=== PATIENT | male | born 1955 | race Caucasian/White ===

== ENCOUNTER 2019-08-25 06:17 | Inpatient (IN) ==
--- NOTE | 2019-07-23 14:58 | PAT Medication Instructions ---
Medication Instructions Date of Service July 23, 2019 Home Medications amlodipine 5 mg PO HS aspirin 81 mg PO HS buspirone 10 mg PO QAM citalopram [Celexa] 10 mg PO HS losartan 50 mg PO HS meloxicam [Mobic] 15 mg PO QAM pravastatin 10 mg PO QAM ASK your surgeon for instructions meloxicam [Mobic] 15 mg PO QAM Take morning of surgery With a small sip of water, OTHERWISE NOTHING TO EAT OR DRINK AFTER MIDNIGHT: buspirone 10 mg PO QAM pravastatin 10 mg PO QAM Take evening before surgery amlodipine 5 mg PO HS aspirin 81 mg PO HS citalopram [Celexa] 10 mg PO HS losartan 50 mg PO HS Insulin Dependent Diabetic Patients * Test your blood sugar the morning of surgery * If Blood Sugar is GREATER THAN 150, take HALF of your regular dose of: * If Blood Sugar is LESS THAN 150, DO NOT TAKE ANY: Other Notes If you have any questions please call us at [phone] or [phone] or [phone] or [phone]
--- NOTE | 2019-07-26 12:25 | Anesthesiology Consultation ---
Date of Service July 26, 2019 Assessment & Plan (1) Encounter for pre-operative examination: PCP clearance 07/28/2019: "A1c elevated at 6.8. He does not want to start on any meds at this time. He wants to try diet and exercise first... Continue current meds. Patient cleared for surgery." Cardiology clearance 07/30/2019: "In regards to his upcoming orthopedic surgery I want him to get the MRI beforehand since it is a knee replacement; as long as stress test is normal and EF is normal and the MRI does not show any significant scarring of the RV then he is at an acceptable moderate cardiovascular risk for his orthopedic surgery." --Stress test negative for ischemia. EF WNL. Cardiac MRI showed no signs of ARVC. CHECK BSG AM DOS Chart Review Chart Review: Acceptable Risk for Surgery and Patient seen in Pre Admission Testing Teaching & Discussion Instructed NPO after midnight before surgery, except medications with 15 cc of water. Medication instructions provided according to the PAT guidelines. History Surgery Operation Date: 08/25/19 08:20 Proposed Procedures p Left Total Knee Arthroplasty; - Cruz Dai DO s Right Knee Arthroscopy With Partial Medial Menisectomy - Cruz Dai DO Height/Weight Height: 6 ft 2 in Weight: 111.6 kg Allergies Allergy/AdvReac Type Severity Reaction Status Date / Time [id number]-[id number] Reductase Allergy Intermediate LEG CRAMPS Verified 07/22/19 09:49 Inhibitor Medications Home Medications Medication Instructions Recorded Confirmed Last Taken amlodipine 5 mg PO HS 07/22/19 07/22/19 Unknown aspirin 81 mg PO HS 07/22/19 07/22/19 Unknown buspirone 10 mg PO QAM 07/22/19 07/22/19 Unknown citalopram [Celexa] 10 mg PO HS 07/22/19 07/22/19 Unknown losartan 50 mg PO HS 07/22/19 07/22/19 Unknown meloxicam [Mobic] 15 mg PO QAM 07/22/19 07/22/19 Unknown pravastatin 10 mg PO QAM 07/22/19 07/22/19 Unknown Past Medical History Medical History Anxiety Barretts esophagus Hyperlipidemia Hypertension Kidney stones Osteoarthritis Research study patient Patient did [facility] "My [facility]" and was notified he is at risk for Arrhythmogenic Right Ventricular Cardiomyopathy. Patient has not been formally diagnosed with anything, normal stress echo 2014. Sleep apnea CPAP Spinal stenosis Exercise / Class Metabolic Activity II 4-5 Yardwork/Stairs/Walk up hill (Denies CP or SOB with 1 FOS, "could probably run up them") Past Family History Family History Grandmother (Paternal) Family history of diabetes mellitus Brother Family hx colonic polyps Sister Family hx colonic polyps Past Surgical History Surgical History History of colonoscopy History of cystoscopy STENT FOR KIDNEY STONES History of esophagogastroduodenoscopy (EGD) History of knee surgery LEFT KNEE X 2 History of lithotripsy History of nasal septoplasty History of shoulder surgery LEFT History of tooth extraction Past Anesthesia History No Hx of Anesthesia Complications and No Family Hx of Anesthesia Complications History of PONV No Hx of PONV and No Hx of Motion Sickness Social History Smoking Status: Never smoker tobacco type: smokeless tobacco Do You Dip or Chew Tobacco: Yes (1 CAN PER DAY (ADVISED NONE AM DOS)) Hx Alcohol Use: Yes Alcohol type: beer alcohol intake frequency: a few times a month Hx Substance Use: No substance use type: does not use Review of Systems Pt denies any recent chest pain, shortness of breath, palpitations, cough, fever or URI. Physical Exam Vital Signs BP: 157/88 (pt takes BP at home daily, states usually 120's systolic) P: 56bpm SPO2: 95% RA T: 97.8 F R: 16 ENMT Mouth: + dentures (partial upper) and + dental restorations (several caps); no chipped teeth and no loose teeth Thyromental Distance: > or= 3.5 Finger Breadths (3.5) Mallampati Class: I Neck normal visual inspection; thyromental distance not shortened Respiratory normal respiratory effort Auscultation: lungs clear to auscultation bilaterally Cardiovascular Rate/Rhythm: regular rate and regular rhythm Heart Sounds: no murmur Vessels: no carotid bruit Extremities: no edema Neurologic Slight head tremor periodically (tic?) Testing Laboratory Results 07/26/19 12:36 07/26/19 12:36 PT 10.9 Seconds (9.0-12.0) 07/26/19 12:36 INR 1.1 (0.9-1.1) 07/26/19 12:36 APTT 23.6 Seconds (21.0-31.0) 07/26/19 12:36 Hemoglobin A1c 6.8 % (4.5-5.6) H 07/26/19 12:36 Urine Color Yellow 07/26/19 12:36 Urine Appearance Clear (Clear) 07/26/19 12:36 Urine pH 5.0 (4.5-7.5) 07/26/19 12:36 Ur Specific [place] 1.024 (1.000-1.030) 07/26/19 12:36 Urine Protein Negative (Negative) 07/26/19 12:36 Urine Glucose (UA) Negative (Negative) 07/26/19 12:36 Urine Ketones Negative (Negative) 07/26/19 12:36 Urine Nitrite Negative (Negative) 07/26/19 12:36 Ur Leukocyte Esterase Negative (Negative) 07/26/19 12:36 Blood Type B Positive 07/26/19 12:36 Antibody Screen NEGATIVE 07/26/19 12:36 Electrocardiogram Date: 07/26/19 Findings: + SB @ (53bpm) Stress Test Date: 08/06/19 Resting EF: 55-59% The stress echo was negative for inducible ischemia. Blood pressure response to exercise was hypertensive. LV wall motion is normal at rest and with stress. Patient had periods of frequent multiformed ventricular ectopics as isolated complexes, including brief periods ventricular ectopic bigeminy and ventricular ectopic trigeminy, no nonsustained or sustained ventricular tachycardia seen. Mild tricuspid regurgitation is present.
[2019-07-26 12:59] LABS: Basophils # (auto) 0.02 K/uL (0-0.2); Basophils % (auto) 0.3 %; Eosinophils # (auto) 0.12 K/uL (0-0.5); Eosinophils % (auto) 1.9 %; Hemoglobin 14.3 g/dL (14.0-18.0); Lymphocytes # (auto) 2.42 K/uL (1.2-3.4); Lymphocytes % (auto) 38.4 %; Mean Corpuscular Hgb Conc 33.3 g/dL (32-36); Mean Corpuscular Volume 87.2 fL (80-100); Mean Platelet Volume 11.7 fL (7.4-10.4); Monocytes # (auto) 0.55 K/uL (0.11-0.59); Monocytes % (auto) 8.7 %; Neutrophils % (auto) 50.7 %; Platelet Count 185 K/uL (130-400); RDW Coefficient of Variation 13.5 % (11.5-14.5); RDW Standard Deviation 42.8 fL (36.4-46.3); Red Blood Count 4.93 M/uL (4.7-6.1); White Blood Count 6.31 K/uL (4.8-10.8)
[2019-07-26 13:02] LABS: Estimated Average Glucose 148 mg/dl; Hemoglobin A1C 6.8 % (4.5-5.6)
[2019-07-26 13:06] LABS: Appearance Urine Clear (Clear); Bilirubin Urine Negative (Negative); Blood Urine Negative (Negative); Color Urine Yellow; Glucose Urine UA Negative (Negative); Ketones Urine Negative (Negative); Leukocyte Esterase Urine Negative (Negative); Nitrite Urine Negative (Negative); Protein Urine Negative (Negative); Specific Gravity Urine 1.024 (1.000-1.030); Urobilinogen Urine Negative (Negative)
[2019-07-26 13:19] LABS: INR 1.1 (0.9-1.1); Partial Thromboplastin Ratio 0.9; Partial Thromboplastin Time 23.6 Seconds (21.0-31.0); Prothrombin Time 10.9 Seconds (9.0-12.0)
--- NOTE | 2019-07-26 13:23 | XRay Report ---
XR chest Pre-admission PA/Lat CLINICAL HISTORY: Preoperative evaluation. COMPARISON STUDY: No previous studies for comparison. FINDINGS: Lung volumes are normal. Lungs are clear. There is no pneumothorax or pleural effusion. Car diac size is normal. Mediastinal contours are normal. There is no evidence for pulmonary edema. Incid ental note is made of an old, healed mid shaft fracture of the right clavicle. IMPRESSION: No acute cardiopulmonary findings. Electronically signed by: Jarett Rosenberg M.D. 07/26/2019 1:22 PM
[2019-07-26 14:56] LABS: Albumin Level 3.5 gm/dl (3.4-5.0); BUN Creatinine Ratio 26.7 (10-20); Est GFR (African American) 86.8; Est GFR (Non-African American) 74.8
--- NOTE | 2019-07-28 20:05 | History & Physical Report ---
Date of Service July 28, 2019 date of surgery: 08/25/19 Assessment & Plan (1) Osteoarthritis of left knee: Further care discussed with patient and at this point in time has failed conservative measures and would like to proceed with a left total knee replacement, will also perform right knee scope with PMM. Plan on discharge will be home with outpatient physical therapy. DVT prophylaxis with TEDs, SCDs and will also place on aspirin 81 mg p.o. b.i.d. for a month postop. Patient will have follow up appointment in our office two weeks post op for suture removal and re-evaluation. Patient otherwise has no other questions or concerns. (2) Tear of medial meniscus of right knee: risks and benefits discussed, would like to proceed with right knee scope and partial medial menisectomy. History of Present Illness Chief Complaint: bilateral knee pain Primary Care Provider: Esha Solorzano PA-C Shiva is a 64 year old male who complains of bilateral knee pain, presents for pre-op evaluation prior to a left total knee replacement and right knee scope with partial medial menisectomy by dr Dai at [facility]. He complains of pain, crepitus, decreased range of motion, instability and stiffness in the left knee with pain and catching in his right knee. He states that the symptoms have been chronic and non-traumatic. Shiva states that the symptoms occur constantly with intermittent worsening. Currently the patient states that the symptoms are moderate-severe. The pain is described as aching, sharp and throbbing. The symptoms occur continuously. The symptoms are aggravated by ascending stairs, daily activities, first steps while awake walking. Prior NSAIDs include Mobic and IBU. He has been treated with previous cortisone and visco injections in the past without much relief in his left knee. His x-rays show advanced DJD of his left knee, and MRI confirms medial meniscus tear of his right knee. Allergies Allergy/AdvReac Type Severity Reaction Status Date / Time [id number]-[id number] Reductase Allergy Intermediate LEG CRAMPS Verified 07/22/19 09:49 Inhibitor Home Medications Home Medications Medication Instructions Recorded Confirmed Type amlodipine 5 mg PO HS 07/22/19 07/22/19 History aspirin 81 mg PO HS 07/22/19 07/22/19 History buspirone 10 mg PO QAM 07/22/19 07/22/19 History citalopram [Celexa] 10 mg PO HS 07/22/19 07/22/19 History losartan 50 mg PO HS 07/22/19 07/22/19 History meloxicam [Mobic] 15 mg PO QAM 07/22/19 07/22/19 History pravastatin 10 mg PO QAM 07/22/19 07/22/19 History Past Med/Surg History Medical History Anxiety Barretts esophagus Hyperlipidemia Hypertension Kidney stones Osteoarthritis Research study patient Patient did [facility] "[facility]" and was notified he is at risk for Arrhythmogenic Right Ventricular Cardiomyopathy. Patient has not been formally diagnosed with anything, normal stress echo 2014. 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 Beliefs That Will Affect Care: None Current Living Situation: Spouse Feels Safe at Home: Yes Safety Concerns: Feels Safe At This Time Smoking Status: Never smoker Tobacco Type: smokeless tobacco ; Do You Dip or Chew Tobacco: Yes (1 CAN PER DAY (ADVISED NONE AM DOS)) ; Second Hand Exposure: Yes ; Tobacco Cessation Education Requested by Patient: No Hx Alcohol Use: Yes Alcohol type: beer Hx Substance Use: No Review of Systems Review of Systems: All systems reviewed & are unremarkable except as noted in HPI & below Constitutional: no fever, no chills and no sweats Respiratory: no cough and no dyspnea Cardiovascular: no chest pain, no dyspnea and no orthopnea Gastrointestinal: no abdominal pain, no nausea and no vomiting Musculoskeletal: as per Subjective / HPI Physical Exam Physical Exam: Ht: 6ft 2in Wt: 111.6kg BP: 122/78 Pulse: 78 Constitutional: WD/WN, vitals as above no acute distress Respiratory: normal respiratory effort, lungs clear to auscultation no respiratory distress, no labored breathing and does not use accessory muscles Cardiovascular: RRR, no murmur, no edema Gastrointestinal (Abdomen): normal bowel sounds, soft, nontender, no hepatosplenomegaly Musculoskeletal: Left Knee Physical Exam ambulates with a limp, there is no erythema, warmth, ecchymosis or atrophy noted, +1 effusion, greatest tenderness over the medial joint line and anterior knee joint. negative patellar apprehension , mild crepitation with motion, jasbir's negative, posterior drawer negative. positive mcmurrays medially, negative anterior drawer, knee stable with valgus/varus stress. no extensor lag. pain with active range of motion, AROM 0/3/110, Passive ROM 0/3/115. No pain with active/passive ROM of ankle. Lower Extremity Strength normal. Lower Extremity Neuro-vascular is normal Right Knee Exam neutral alignment, no erythema or warmth, no atrophy or ecchymosis, mild effusion, tenderness to the knee greatest over medial compartment, negative patellar apprehension , no crepitation with motion, jasbir's negative, Dione's - lateral negative, Dione's - medial positive, Posterior drawer- negative, anterior drawer negative, valgus stress negative, varus stress negative, no extensor lag, pain with active range of motion, no pain with passive painful ROM, Range of motion 0/3/120. No pain with active/passive ROM of ankle. Lower extremity strength normal. Lower extremity neuro-vascular is normal Results & Data Laboratory Results Laboratory Results WBC 6.31 K/uL (4.8-10.8) 07/26/19 12:36 RBC 4.93 M/uL (4.7-6.1) 07/26/19 12:36 Hgb 14.3 g/dL (14.0-18.0) 07/26/19 12:36 Hct 43.0 % (42-52) 07/26/19 12:36 MCV 87.2 fL (80-100) 07/26/19 12:36 MCH 29.0 pg (25-34) 07/26/19 12:36 MCHC 33.3 g/dL (32-36) 07/26/19 12:36 RDW Std Deviation 42.8 fL (36.4-46.3) 07/26/19 12:36 RDW Coeff of [place] 13.5 % (11.5-14.5) 07/26/19 12:36 Plt Count 185 K/uL (130-400) 07/26/19 12:36 MPV 11.7 fL (7.4-10.4) H 07/26/19 12:36 Immature Gran % (Auto) 0.0 % 07/26/19 12:36 Neut % (Auto) 50.7 % 07/26/19 12:36 Lymph % (Auto) 38.4 % 07/26/19 12:36 [place] % (Auto) 8.7 % 07/26/19 12:36 Eos % (Auto) 1.9 % 07/26/19 12:36 Baso % (Auto) 0.3 % 07/26/19 12:36 Immature Gran # (Auto) 0.00 K/uL (0.00-0.02) 07/26/19 12:36 Neut # (Auto) 3.20 K/uL (1.4-6.5) 07/26/19 12:36 Lymph # (Auto) 2.42 K/uL (1.2-3.4) 07/26/19 12:36 [place] # (Auto) 0.55 K/uL (0.11-0.59) 07/26/19 12:36 Eos # (Auto) 0.12 K/uL (0-0.5) 07/26/19 12:36 Baso # (Auto) 0.02 K/uL (0-0.2) 07/26/19 12:36 PT 10.9 Seconds (9.0-12.0) 07/26/19 12:36 INR 1.1 (0.9-1.1) 07/26/19 12:36 APTT 23.6 Seconds (21.0-31.0) 07/26/19 12:36 PTT Ratio 0.9 07/26/19 12:36 Sodium 140 mmol/L (136-145) 07/26/19 12:36 Potassium 4.0 mmol/L (3.5-5.1) 07/26/19 12:36 Chloride 108 mmol/L (98-107) H 07/26/19 12:36 Carbon Dioxide 26 mmol/L (21-32) 07/26/19 12:36 Anion Gap 6.0 (3-11) 07/26/19 12:36 BUN 28 mg/dl (7-18) H 07/26/19 12:36 Creatinine 1.06 mg/dl (0.6-1.4) 07/26/19 12:36 Est Cr Clr Drug Dosing 96.0 ml/min 07/26/19 12:36 Est GFR ( Amer) 86.8 07/26/19 12:36 Est GFR (Non-Af Amer) 74.8 07/26/19 12:36 BUN/Creatinine Ratio 26.7 (10-20) H 07/26/19 12:36 Glucose 112 mg/dl (70-99) H 07/26/19 12:36 Estimat Average Glucose 148 mg/dl 07/26/19 12:36 Hemoglobin A1c 6.8 % (4.5-5.6) H 07/26/19 12:36 Calcium 9.0 mg/dl (8.5-10.1) 07/26/19 12:36 Albumin 3.5 gm/dl (3.4-5.0) 07/26/19 12:36 Urine Color Yellow 07/26/19 12:36 Urine Appearance Clear (Clear) 07/26/19 12:36 Urine pH 5.0 (4.5-7.5) 07/26/19 12:36 Ur Specific [place] 1.024 (1.000-1.030) 07/26/19 12:36 Urine Protein Negative (Negative) 07/26/19 12:36 Urine Glucose (UA) Negative (Negative) 07/26/19 12:36 Urine Ketones Negative (Negative) 07/26/19 12:36 Urine Blood Negative (Negative) 07/26/19 12:36 Urine Nitrite Negative (Negative) 07/26/19 12:36 Urine Bilirubin Negative (Negative) 07/26/19 12:36 Urine Urobilinogen Negative (Negative) 07/26/19 12:36 Ur Leukocyte Esterase Negative (Negative) 07/26/19 12:36 Blood Type B Positive 07/26/19 12:36 Antibody Screen NEGATIVE 07/26/19 12:36 Diagnostic Findings Left Knee X-ray: left knee series confirm advanced degenerative changes to the left knee, greatest medial compartments and patellofemoral joint, showing joint space narrowing, osteophyte formation and subchondral sclerosis. no acute bony pathology noted. Right Knee MRI- tear posterior horn medial meniscus
[~2019-08-25 06:17] MED LIST: ACETAMINOPHEN 500 MG TAB PO SCH; CEFAZOLIN 2000MG 2,000 MG/15 ML SYR IV SCH; CeleBREX 200 MG CAP PO SCH; GABAPENTIN 600 MG DOSE PO SCH; LR 500ML BOLUS, THEN 15ML/HR IV SCH; ROPIVACAINE 0.5% HCL/PF 150 MG, BUPIVACAINE 0.5% MPF 30 ML, EPINEPHrine 30MG/30ML (OR U... INSTIL SCH; TRANEXAMIC ACID 1,000 MG **IV Intra-op IV SCH; TRANEXAMIC ACID 1,000 MG **IV Pre-op IV SCH; dexAMETHasone 4 MG TAB PO SCH
[2019-08-25] MEDS ORDERED: BUPIVACAINE 0.25% 30 ML VIAL ONE (06:23)
[2019-08-25] MEDS ORDERED: BUPIVACAINE 0.5 % 5 MG/1 ML PF 10ML VIAL ONE (06:23)
--- NOTE | 2019-08-25 07:05 | History & Physical Bridge Note ---
Date of Service August 25, 2019 History & Physical Bridge Note I have examined the patient, reviewed the History & Physical and in the interval since the performance of the History & Physical I have noted the following changes of clinical significance: no changes noted
[2019-08-25] MEDS ORDERED: ONDANSETRON INJ 2 MG/ML 2 ML VIAL IV PRN ×2 (07:14→11:37)
[2019-08-25] MEDS ORDERED: ATROPINE SULFATE 0.1 MG/ML 10ML SYR IV PRN (07:14)
[2019-08-25] MEDS ORDERED: fentaNYL citrate 100 MCG/2 ML VIAL IV PRN (07:14)
[2019-08-25] MEDS ORDERED: ePHEDrine sulfate 50 MG/ML AMP IV PRN (07:14)
[2019-08-25] MEDS ORDERED: MIDAZOLAM HCL 1 MG/ML 2ML VIAL ONE (07:15)
[2019-08-25] MEDS ORDERED: fentaNYL citrate 100 MCG/2 ML VIAL ONE (07:15)
[2019-08-25] MEDS ORDERED: ORTHO JOINT ANESTHETIC ONE (07:23)
[2019-08-25] MEDS ORDERED: BACITRACIN INJ 50,000 UNIT VIAL ONE (07:23)
[2019-08-25] MEDS ORDERED: BUPIVACAINE/EPINEPHRINE 0.25% 1:200,000 30 ML VIAL ONE (07:24)
[2019-08-25] MEDS ORDERED: BUPIVACAINE/EPINEPHRINE 0.5% MPF 1:200,000 10 ML VIAL ONE (07:24)
[2019-08-25] MEDS ORDERED: ePHEDrine sulfate 50 MG/ML SYR ONE (07:26)
[2019-08-25] MEDS ORDERED: LIDOCAINE HCL 2% 2 ML VIAL/AMP(20MG/ML) INFIL ONE (07:26)
[2019-08-25] MEDS ORDERED: PROPOFOL IV EMULSION 10 MG/ML 20 ML VIAL IV ONE ×4 (07:26→10:01)
[2019-08-25] MEDS ORDERED: ONDANSETRON INJ 2 MG/ML 2 ML VIAL ONE (09:05)
--- NOTE | 2019-08-25 09:58 | Operative Report ---
Post Operative Report Pre & Post Diagnosis Operation Date: 08/25/19 08:20 Pre-Op Diagnosis: Right knee medial meniscus Tear and Left Knee Osteoarthritits Post-Op Diagnosis: Right knee medial meniscus Tear and Left Knee Osteoarthritits I identified the patient and participated in the time-out.: Yes Procedure Operation Date: 08/25/19 08:20 Actual Procedures s Left Total Knee Arthroplasty; utilizing [employer] journey 2 patient matched total knee arthroplasty size 7 femur 6 tibia 10 polyethylene 35 oval patella (Left) - Cruz Dai DO p Right Knee Arthroscopy With Partial Medial Menisectomy(Right) - Cruz Dai DO Surgeon Cruz Dai DO Head Up Operator Helper Dante JURADO Estimated Blood Loss 6 Findings Consistent with Post-Op Diagnosis Right knee patient presents with medial joint line pain tenderness on exam since that of a torn medial meniscus MRI also verifies this is positive medial joint line tenderness with positive margin circumduction findings and mild effusion intraoperative findings noted complex tear posterior medial meniscus left knee patient has tricompartmental degenerative joint disease with marginal osteophytes subchondral cystic changes sclerosis varus alignment moderate to large effusion nonresponsive to conservative management Specimens Bone and cartilage Drains Medium bore Hemovac left Complications none Disposition Accompanied Patient To Recovery: No Disposition: Recovery Room Indications Patient presents with bilateral knee pain right knee torn medial meniscus with positive Dione and circumduction findings but no response to conservative management patient presents for arthroscopy left knee patient presents for total knee arthroplasty after failed attempted Visco injections corticosteroid inject ions relative rest activity modification bracing and oral anti-inflammatories with the above intraoperative findings were noted. Description of Procedure After proper identification the patient the right lower extremity socially prepped and draped in sterile fashion surgeon's type our scope examination beginning region the medial compartment evidence of a complex tear posterior horn of the medial meniscus subsequent partial posterior horn medial meniscectomy performed lateral meniscus visualized and probed was noted to be intact anterior posterior cruciate ligament visualized and probed noted to be intact patellofemoral joint was otherwise pristine there was a complex tear of the posterior horn the medial meniscus was trimmed to a stable margin articular cartilage of the medial compartment and the femoral condyle side had some grade 2 and 3 global changes the lateral compartment was otherwise uninvolved. Suspect removal of partial posterior medial meniscectomy vasectomy the skin was closed with 4-0 nylon injection of 20 cc of 0.25% Marcaine with epinephrine was injected into the knee joint sterile compressive dressing was placed sub sequently a patient with the drapes were taken down and a second set up was prepared for the left total knee arthroplastyAfter proper prepping and draping of the left lower extremity anterior midline incision was made over the region of the extensor extensor mechanism after meticulous hemostasis was obtained and maintained in subcutaneous tissues a medial parapatellar incision was made The patella was subluxed lateralward the medial lateral gutter were cleaned from any hypertrophic synovitis and scar tissue of the distal femoral block was placed and the distal femoral osteotomy cut was made subsequently the chamfers anterior and posterior osteotomy cuts were made utilizing the 4-in-1 block the tibia was subsequently subluxed anteriorward medial and ateral meniscal remnants were excised in their entirety remnants of the anterior and posterior cruciate ligaments were excised in their entirety excellent exposure of the proximal tibia was obtained the tibial osteotomy guide was placed on the proximal tibial osteotomy cut was made once again the knee was irrigated with copious amounts of sterile saline solution the patella was subsequently everted lateralward thickened scar tissue around the patella was removed the patella was subsequently cut utilizing a freehand technique and was drilled prepared for final preparation and placement of patella socially flexion-extension gaps were checked and the equal and symmetric trials were placed to the appropriate femoral and tibial trials with poly-spacer being placed for equal flexion and extension gaps and full range of motion including extension to 0 and flexion to 140 the trial components after having been taken to recovery range of motion was subsequently removed meticulous hemostasis was obtained and maintained sub sequently a knee block injection of joint cocktail including ropivacaine 0.5% 150 mg. Bupivacaine 0.5% epinephrine 1-200,030 mL's toradol 30 mg dexamethasone 4 mg ketamine 10 mg clonidine 100 micrograms normal saline solution 30 mg was infiltrated into the soft tissues of the posterior knee medial lateral gutters and periosteal synovium special attention was paid to protect neurovascular structures at all times subsequently trial components having been removed the knee was irrigated with sterile saline solution. debris was removed the proximal tibia was subsequently prepared and was made ready for the placement of the tibial component tibial component was also cemented and tamped into position the femoral component was subsequently placed and cemented in the position the patellar component was subsequently cemented in position because hemostasis once again obtained and maintained wound having been thoroughly irrigated with debridement and debridement lavage was performed as well as a medial parapatellar incision closed with #1 Vicryl in interrupted fashion subcutaneous was closed with #2 Vicryl skin was closed with skin clips. PA-C was necessary for prepping and drapping as well as wound closure of deep fascia Sub cutaneous tissue and skin and was necessary for the case. A sterile compressive dressing was placed patient was taken to recovery in stable condition of report dictated by Suhas I attest to the content of the Intraoperative Record and any orders documented therein. Any exceptions are noted below. I attest to the content of the Intraoperative Record and any orders documented therein. Any exceptions are noted below.
--- NOTE | 2019-08-25 11:12 | XRay Report ---
XR knee LT 1 or 2V routine HISTORY: 64 years-old Male Surgical Post Op left knee total joint arthroplasty COMPARISON: None available TECHNIQUE: 2 views of the left knee FINDINGS: Left knee total joint arthroplasty and patella resurfacing demonstrates satisfactory alignment withou t acute fracture or retained foreign body. Expected postsurgical soft tissue swelling and deep tissue air is noted along with surgical drainage catheter. IMPRESSION: Satisfactory alignment of the left knee total joint arthroplasty. ACT 112: Negative or not required by law. The above report was generated using voice recognition software. It may contain grammatical, syntax o r spelling errors. Electronically signed by: Nathan Gastelum M.D. 08/25/2019 11:10 AM
[2019-08-25] MEDS ORDERED: MAGNESIUM HYDROXIDE SUSP 30 ML UDC PO PRN (11:37)
[2019-08-25] MEDS ORDERED: bisacodyL 10 MG SUPP PR PRN (11:37)
[2019-08-25] MEDS ORDERED: NALOXONE HCL 0.4 MG/1 ML VIAL/CARP IV PRN (11:37)
[2019-08-25] MEDS ORDERED: HYDROmorphone INJ 0.5 MG/0.5 ML SYR IV PRN (11:37)
[2019-08-25] MEDS ORDERED: SODIUM CHLORIDE 0.9% 1000ML 1,000 ML IV SCH (11:37)
--- NOTE | 2019-08-25 13:50 | Anesthesiology Progress Note ---
Date of Service August 25, 2019 Anesthesia Post Procedure Vital Signs Vital Signs: Temp Pulse Pulse Resp BP BP Pulse Ox 08/25/19 13:27 36.4 C L 80 18 131/64 93 08/25/19 12:33 36.4 C L 61 18 121/63 94 08/25/19 12:00 36.9 C 59 L 16 123/66 93 08/25/19 11:45 36.5 C 56 L 16 135/71 94 08/25/19 11:20 56 L 15 129/65 96 08/25/19 11:10 36.3 C L 60 17 137/72 94 08/25/19 11:00 61 17 153/74 H 94 08/25/19 10:50 72 20 155/66 H 94 08/25/19 10:41 36.2 C L 73 17 144/65 H 95 08/25/19 06:52 36.7 C 58 L 20 159/90 H 95 Pain Intensity Bilateral Knee: Pain Intensity: 3 Head: Pain Intensity: 2 Transfer of Care Handoff Completed per policy Notes Mental Status: alert / awake / arousable and participated in evaluation Patient Amnestic to Procedure: Yes Nausea / Vomiting: adequately controlled Pain: adequately controlled Airway Patency, RR, SpO2: stable & adequate BP & HR: stable & adequate Hydration State: stable & adequate Neuraxial Anesthesia: was administered and sensory block is resolving Anesthetic Complications: no major complications apparent and Pt Satisfied with anesthetic care
[2019-08-25] MEDS: ACETAMINOPHEN 500 MG TAB PO SCH (15:37)
[2019-08-25] MEDS: CEFAZOLIN 2000MG 2,000 MG/15 ML SYR IV SCH (15:38)
[2019-08-25] MEDS: FERROUS GLUCONATE 324 MG TAB PO SCH (17:50)
[2019-08-25] MEDS: ASPIRIN 81 MG ECTAB PO SCH (20:32)
[2019-08-25] MEDS: DOCUSATE SODIUM 100 MG CAP PO SCH (20:32)
[2019-08-25] MEDS ORDERED: AMLODIPINE BESYLATE 5 MG TAB PO SCH (21:00)
[2019-08-25] MEDS ORDERED: LOSARTAN POTASSIUM 50 MG TAB PO SCH (21:00)
[2019-08-25] MEDS ORDERED: CITALOPRAM 20 MG TAB PO SCH (21:00)
[2019-08-25] MEDS ORDERED: SENNA 8.6 MG TAB PO SCH (21:00)
[2019-08-26] MEDS: CEFAZOLIN 2000MG 2,000 MG/15 ML SYR IV SCH (00:14)
[2019-08-26] MEDS: ACETAMINOPHEN 500 MG TAB PO SCH ×2 (00:14→08:16)
[2019-08-26] MEDS: OXYCODONE HCL IR 5 MG TAB (IMMEDIATE RELEASE) PO PRN ×3 (03:38→11:50)
[2019-08-26 05:21] LABS: Hematocrit (blood only) 35.5 % (42-52); Hemoglobin 11.8 g/dL (14.0-18.0); Mean Corpuscular Hemoglobin 28.9 pg (25-34); Mean Corpuscular Hgb Conc 33.2 g/dL (32-36); Mean Corpuscular Volume 86.8 fL (80-100); Mean Platelet Volume 11.4 fL (7.4-10.4); Platelet Count 164 K/uL (130-400); RDW Coefficient of Variation 13.6 % (11.5-14.5); RDW Standard Deviation 43.2 fL (36.4-46.3); Red Blood Count 4.09 M/uL (4.7-6.1); White Blood Count 16.52 K/uL (4.8-10.8)
[2019-08-26 05:40] LABS: BUN Creatinine Ratio 25.7 (10-20); Calcium 8.4 mg/dl (8.5-10.1); Est GFR (African American) 63.6; Est GFR (Non-African American) 54.9; Potassium 4.5 mmol/L (3.5-5.1)
--- NOTE | 2019-08-26 07:15 | Anesthesiology Progress Note ---
Date of Service August 26, 2019 Anesthesia Post Procedure Vital Signs Vital Signs: Temp Pulse Pulse Pulse Resp BP Pulse Ox 08/26/19 03:18 36.5 C 61 16 137/53 L 93 08/26/19 00:08 36.8 C 59 L 16 129/50 L 94 08/25/19 20:29 75 108/50 L 08/25/19 19:05 36.7 C 78 16 115/62 91 08/25/19 14:25 83 18 118/57 L 97 08/25/19 13:27 36.4 C L 80 18 131/64 93 08/25/19 12:33 36.4 C L 61 18 121/63 94 08/25/19 12:00 36.9 C 59 L 16 123/66 93 08/25/19 11:45 36.5 C 56 L 16 135/71 94 08/25/19 11:20 56 L 15 129/65 96 08/25/19 11:10 36.3 C L 60 17 137/72 94 08/25/19 11:00 61 17 153/74 H 94 08/25/19 10:50 72 20 155/66 H 94 08/25/19 10:41 36.2 C L 73 17 144/65 H 95 Pain Intensity Bilateral Knee: Pain Intensity: 3 Head: Pain Intensity: 2 Left Knee: Pain Intensity: 3 Notes Mental Status: alert / awake / arousable and participated in evaluation Nausea / Vomiting: adequately controlled Pain: adequately controlled Airway Patency, RR, SpO2: stable & adequate BP & HR: stable & adequate Hydration State: stable & adequate Neuraxial Anesthesia: sensory block is resolving Anesthetic Complications: Pt Satisfied with anesthetic care
[2019-08-26] MEDS: FERROUS GLUCONATE 324 MG TAB PO SCH (08:15)
[2019-08-26] MEDS: DOCUSATE SODIUM 100 MG CAP PO SCH (08:16)
[2019-08-26] MEDS: ASPIRIN 81 MG ECTAB PO SCH (08:17)
[2019-08-26] MEDS ORDERED: PRAVASTATIN SOD 10 MG TAB PO SCH (09:00)
[2019-08-26] MEDS ORDERED: MULTIVITAMIN TAB PO SCH (09:00)
--- NOTE | 2019-08-26 11:44 | Orthopedic Progress Note ---
Date of Service August 26, 2019 Assessment & Plan (1) Osteoarthritis of left knee: Postop day 1 status post left total knee arthroplasty and right knee arthroscopy. PT/OT protocols. Weightbearing as tolerated bilateral. Patient progressing well. DVT prophylaxis with aspirin, SCDs and SHIVANI hose. Pain management with acetaminophen hydromorphone IV and p.o. oxycodone Patient is planning for home health services upon discharge. He will need to have his drain removed by home health services the following day from discharge. Plan for possible discharge to home today. Subjective Postop day 1 Patient is currently ambulating in the room heading to the bathroom. I returned after he had use the restroom and he is now lying in bed. He states that physical therapy went well and he is ambulating fairly independently. He ambulated 300 feet this morning. Denies any shortness of breath, chest pain, lightheadedness. Pain is controlled. He is hoping to go home today. Physical Exam 2 Physical Exam: Bilateral dressings are clean, dry, and intact. Calves are soft. Mild tenderness on the left calf with no point tenderness and no overt swelling of the lower extremity. No increased pain with passive dorsiflexion (neg Saumya's exam). Neurovascular is intact. Toes are mobile. He has good dorsiflexion and plantarflexion of the bilateral ankle and feet. Hemovac drainage was 100 mL this morning and rechecking at the time of my visit, was another 100. Results & Data Vital Signs (Past 12 Hours) Vital Signs Temp Pulse Resp BP Pulse Ox 08/26/19 03:18 36.5 C 61 16 137/53 L 93 08/26/19 00:08 36.8 C 59 L 16 129/50 L 94 Laboratory Results Laboratory Results WBC 16.52 K/uL (4.8-10.8) H 08/26/19 05:06 RBC 4.09 M/uL (4.7-6.1) L 08/26/19 05:06 Hgb 11.8 g/dL (14.0-18.0) L 08/26/19 05:06 Hct 35.5 % (42-52) L 08/26/19 05:06 MCV 86.8 fL (80-100) 08/26/19 05:06 MCH 28.9 pg (25-34) 08/26/19 05:06 MCHC 33.2 g/dL (32-36) 08/26/19 05:06 RDW Std Deviation 43.2 fL (36.4-46.3) 08/26/19 05:06 RDW Coeff of Belkys 13.6 % (11.5-14.5) 08/26/19 05:06 Plt Count 164 K/uL (130-400) 08/26/19 05:06 MPV 11.4 fL (7.4-10.4) H 08/26/19 05:06 Immature Gran % (Auto) 0.0 % 07/26/19 12:36 Neut % (Auto) 50.7 % 07/26/19 12:36 Lymph % (Auto) 38.4 % 07/26/19 12:36 [place] % (Auto) 8.7 % 07/26/19 12:36 Eos % (Auto) 1.9 % 07/26/19 12:36 Baso % (Auto) 0.3 % 07/26/19 12:36 Immature Gran # (Auto) 0.00 K/uL (0.00-0.02) 07/26/19 12:36 Neut # (Auto) 3.20 K/uL (1.4-6.5) 07/26/19 12:36 Lymph # (Auto) 2.42 K/uL (1.2-3.4) 07/26/19 12:36 [place] # (Auto) 0.55 K/uL (0.11-0.59) 07/26/19 12:36 Eos # (Auto) 0.12 K/uL (0-0.5) 07/26/19 12:36 Baso # (Auto) 0.02 K/uL (0-0.2) 07/26/19 12:36 PT 10.9 Seconds (9.0-12.0) 07/26/19 12:36 INR 1.1 (0.9-1.1) 07/26/19 12:36 APTT 23.6 Seconds (21.0-31.0) 07/26/19 12:36 PTT Ratio 0.9 07/26/19 12:36 Sodium 136 mmol/L (136-145) 08/26/19 05:06 Potassium 4.5 mmol/L (3.5-5.1) 08/26/19 05:06 Chloride 107 mmol/L (98-107) 08/26/19 05:06 Carbon Dioxide 24 mmol/L (21-32) 08/26/19 05:06 Anion Gap 5.0 (3-11) 08/26/19 05:06 BUN 35 mg/dl (7-18) H 08/26/19 05:06 Creatinine 1.37 mg/dl (0.6-1.4) 08/26/19 05:06 Est Cr Clr Drug Dosing 74.0 ml/min 08/26/19 05:06 Est GFR ( Amer) 63.6 08/26/19 05:06 Est GFR (Non-Af Amer) 54.9 08/26/19 05:06 BUN/Creatinine Ratio 25.7 (10-20) H 08/26/19 05:06 Glucose 192 mg/dl (70-99) H 08/26/19 05:06 POC Glucose 129 mg/dl (70-99) H 08/25/19 07:06 Estimat Average Glucose 148 mg/dl 07/26/19 12:36 Hemoglobin A1c 6.8 % (4.5-5.6) H 07/26/19 12:36 Calcium 8.4 mg/dl (8.5-10.1) L 08/26/19 05:06 Albumin 3.5 gm/dl (3.4-5.0) 07/26/19 12:36 Urine Color Yellow 07/26/19 12:36 Urine Appearance Clear (Clear) 07/26/19 12:36 Urine pH 5.0 (4.5-7.5) 07/26/19 12:36 Ur Specific Wayne 1.024 (1.000-1.030) 07/26/19 12:36 Urine Protein Negative (Negative) 07/26/19 12:36 Urine Glucose (UA) Negative (Negative) 07/26/19 12:36 Urine Ketones Negative (Negative) 07/26/19 12:36 Urine Blood Negative (Negative) 07/26/19 12:36 Urine Nitrite Negative (Negative) 07/26/19 12:36 Urine Bilirubin Negative (Negative) 07/26/19 12:36 Urine Urobilinogen Negative (Negative) 07/26/19 12:36 Ur Leukocyte Esterase Negative (Negative) 07/26/19 12:36 Blood Type B Positive 07/26/19 12:36 Antibody Screen NEGATIVE 07/26/19 12:36
--- NOTE | 2019-08-31 15:51 | Discharge Summary ---
Date of Service August 31, 2019 Admission HPI Per Admitting Provider Shiva is a 64 year old male who complains of bilateral knee pain, presents for pre-op evaluation prior to a left total knee replacement and right knee scope with partial medial menisectomy by dr Dai at [facility]. He complains of pain, crepitus, decreased range of motion, instability and stiffness in the left knee with pain and catching in his right knee. He states that the symptoms have been chronic and non-traumatic. Shiva states that the symptoms occur constantly with intermittent worsening. Currently the patient states that the symptoms are moderate-severe. The pain is described as aching, sharp and throbbing. The symptoms occur continuously. The symptoms are aggravated by ascending stairs, daily activities, first steps while awake walking. Prior NSAIDs include Mobic and IBU. He has been treated with previous cortisone and visco injections in the past without much relief in his left knee. His x-rays show advanced DJD of his left knee, and MRI confirms medial meniscus tear of his right knee. Admission Exam Per Admitting Provider Physical Exam: Ht: 6ft 2in Wt: 111.6kg BP: 122/78 Pulse: 78 Constitutional: WD/WN, vitals as above no acute distress Respiratory: normal respiratory effort, lungs clear to auscultation no respiratory distress, no labored breathing and does not use accessory muscles Cardiovascular: RRR, no murmur, no edema Gastrointestinal (Abdomen): normal bowel sounds, soft, nontender, no hepatosplenomegaly Musculoskeletal: Left Knee Physical Exam ambulates with a limp, there is no erythema, warmth, ecchymosis or atrophy noted, +1 effusion, greatest tenderness over the medial joint line and anterior knee joint. negative patellar apprehension , mild crepitation with motion, jasbir's negative, posterior drawer negative. positive mcmurrays medially, negative anterior drawer, knee stable with valgus/varus stress. no extensor lag. pain with active range of motion, AROM 0/3/110, Passive ROM 0/3/115. No pain with active/passive ROM of ankle. Lower Extremity Strength normal. Lower Extremity Neuro-vascular is normal Right Knee Exam neutral alignment, no erythema or warmth, no atrophy or ecchymosis, mild effusion, tenderness to the knee greatest over medial compartment, negative patellar apprehension , no crepitation with motion, jasbir's negative, Dione's - lateral negative, Dione's - medial positive, Posterior drawer- negative, anterior drawer negative, valgus stress negative, varus stress negative, no extensor lag, pain with active range of motion, no pain with passive painful ROM, Range of motion 0/3/120. No pain with active/passive ROM of ankle. Lower extremity strength normal. Lower extremity neuro-vascular is normal Principal Diagnosis DJD left knee; right knee medial meniscal tear Discharge Exam Bilateral dressings are clean, dry, and intact. Calves are soft. Mild tenderness on the left calf with no point tenderness and no overt swelling of the lower extremity. No increased pain with passive dorsiflexion (neg Saumya's exam). Neurovascular is intact. Toes are mobile. He has good dorsiflexion and plantarflexion of the bilateral ankle and feet. Hemovac drainage was 100 mL this morning and rechecking at the time of my visit, was another 100. Discharge Data Allergies Allergy/AdvReac Type Severity Reaction Status Date / Time Qrbstyh-Lgd-Fhg Reductase Allergy Intermediate LEG CRAMPS Verified 08/25/19 07:07 Inhibitor Consultations 08/25/19 11:37 Consult Case Management - Discharge Planning Routine Procedures Performed Operation Date: 08/25/19 08:20 Actual Procedures s Left Total Knee Arthroplasty;(Left) - Cruz Dai DO p Right Knee Arthroscopy With Partial Medial Menisectomy(Right) - Cruz Dai DO Ordered Studies 08/25/19 05:00 US - OR guided needle placemen Routine Hospital Course (1) Osteoarthritis of left knee: Patient was admitted on the above-noted date and had the above-noted surgeries performed which he tolerated well.On his first postoperative day he was currently ambulating in the room heading to the bathroom. Returned shortly after and he at that point was lying in bed. He states that physical therapy went well and he was ambulating fairly independently. He had ambulated 300 feet that morning. Denied any shortness of breath, chest pain, lightheadedness. Pain was controlled and he was hoping to go home. Bilateral knee dressings were clean dry and intact. Calves are soft nontender. He had some mild tenderness on the left calf with no point tenderness and no overt swelling of the lower extremity. Negative Homans exam. Neurovascular is intact toes are mobile he had good dorsiflexion and plantarflexion of the bilateral ankle and feet. He had a total of 200 mL of drainage from his Hemovac of which plans were to leave in for home health to remove the following day. Vital signs are stable and he was afebrile. Hemoglobin was 11.8. Mild increase in white cell count most likely due to surgical stress and preoperative steroids. Patient was asymptomatic. He was continued on his PT and OT protocols and was progressing well. He was otherwise remaining stable and was felt he be discharged home. (2) Tear of medial meniscus of right knee: As above Total Time Total Time Spent Total Time Spent (In Minutes): 5 Discharge Plan Discharge Items Patient Disposition: Home - Home Health Services Reason For Visit: LEFT KNEE OSTEOARTHRITIS & MEDICAL MENISCUS TEAR Discharge Diagnosis: Left knee osteoarthritis; right knee medial meniscal tear Activity: Per Instructions section Weightbearing: Full weightbearing Non-emergency contact: Surgeon Call non-emergency contact if: your pain is not controlled, your temperature is above 101.5, your wound has increased redness and your wound has increased drainage Follow-up/Referrals: Esha Solorzano PA-C [Primary Care Provider] - Diet: Regular Addtl Attending Provider Instructions: Your Hemovac will be removed by Home Health Services the day after your discharge. Right knee arthroscopy instructions ACTIVITY RECOMMENDATIONS: * You may walk on the leg with or without crutches as comfort permits. * Bending of the knee should start at once. * Do not shower for 48 hours following surgery. SPECIAL CARE INSTRUCTIONS: * You may cleanse the skin adjacent to the small wounds with soap and water at the time of the first dressing change. * The application of an ice bag to the front and sides of the knee will decrease swelling and discomfort for the first 48 hours. * The small incisions may be sore and develop bruising. This bruising does not require any special care. SPECIAL PRECAUTIONS: * If you experience unusual pain unrelieved by prescriptions, temperature elevation (100 degrees F. or above) or progressive swelling or bleeding, you should contact our office at for further evaluation. * You may have been prescribed pain medication. If you experience nausea and/or fine skin rash, discontinue this medication and contact our office at for an alternate medication. DRESSING: * Dressing should be comfortable and absorb any leakage of fluid and/or blood. * The dressing may become moist or bloodstained. * Dressing may be removed 48 hours after surgery and bandaids placed over the small surgical incisions. If can be removed sooner if it becomes very soiled or loose. * Bandaids may be used over next several days as needed and can be discontinued when there is not further drainage from the wounds. FOLLOW UP VISIT: If appointment is not already scheduled: Please call [facility] to make a follow-up appointment for your surgery at . ACTIVITY RECOMMENDATIONS: SELF CARE INSTRUCTIONS AFTER TOTAL KNEE REPLACEMENT A. You may need to continue a physical therapy program after discharge from the hospital. There are several options available to you. Your doctor will assist you in selecting the best one for you. 1. An out-patient facility 2 to 3 times a week for therapy or home therapy. 2. Continue working on all exercises taught to you in the hospital. Your goals should be to increase bending of your knee to 90 degrees and beyond and to fully straighten your knee. B. You may progress at your own pace from walking with a walker or crutches to a cane; then to no assistive devices. C. Make walking a part of your daily routine. Be up as much as comfortable with rest periods throughout the day. Rest with leg elevation is very important. Use the ice wrap frequently for the first 3-4 weeks. D. There are no restrictions on activities. You may ride in a car, shop, participate in car deliverer and all social activities. E. Wear the long elastic stockings (SHIVANI hose) 20 hours a day for 2 weeks after surgery. They can be removed several times a day for laundering and for a bath. F. You may shower, no tub baths until cleared by your doctor. SPECIAL CARE INSTRUCTIONS: VERY IMPORTANT TO READ AND REVIEW A. There are a few signs you need to watch for after you are home. Call [facility] if you notice any of the followin. Increased severe knee pain. Some pain is expected especially when you exercise. 2. Increased swelling in your leg or knee; pain or swelling of the calf muscle in either lower leg. 3. Any fluid drainage from the incision. 4. Shortness of breath or chest pain. B. Please call [facility] at if you have any concerns or questions about your operation or recovery. The doctor or his nurse will return your call promptly. C. You must take antibiotics before dental work, bladder, bowel or other surgery. Your doctor will provide you with a permanent care to carry describing this precaution. IMPORTANT: * REMEMBER TO TAKE ASPIRIN, 81 MG, TWICE DAILY FOR 4 WEEKS UNLESS OTHERWISE DIRECTED. THIS IS YOUR BLOOD THINNER. * HIGH RISK PATIENTS MAY BE PRESCRIBED A STRONGER BLOOD THINNER. THIS WILL BE PROVIDED AT DISCHARGE. * CALL IF INCREASED PAIN, REDNESS, DRAINAGE OR FEVER GREATER THAT 101. * WEAR SHIVANI HOSE 20 HOURS PER DAY FOR 2 WEEKS. * DERMABOND Prineo- This is a mesh tape dressing that is covered with glue. It should remain in place until the incision is properly healed, usually 10-14 days. This dressing is designed to naturally slough off. You may trim the excess mesh tape as it peels off. Incision may be briefly wet in a shower. Dry immediately by blotting with a clean, dry towel. Do not bath or swim until instructed by your doctor. Do not scratch, rub, or pick at the dressing. Do not apply any topical ointments or lotions until dressing is completely removed and/or instructed by your doctor. There may be a small piece of suture material at one end of your incision. Do not pull or trim this. If it is bothersome or catching on clothing, you may cover it with a band-aid. Please call the office with any questions. . FOLLOW UP VISIT: If appointment is not already scheduled: Please call [facility] to make a follow-up appointment for 2 weeks after your surgery at . Pending Studies at Discharge: Yes Studies:: Pathology report Stand-Alone Forms: [facility], Opioid Pain Management, Smoking Cessation Medications and DC Order Prescriptions: New aspirin [Ecotrin Low Strength] 81 mg Tablet,Delayed Release (Dr/Ec) 81 mg PO BID 30 Days Qty: 60 RF: 0 acetaminophen 500 mg Tablet 1,000 mg PO Q8H 14 Days Qty: 84 RF: 0 oxycodone 5 mg Tablet 5 mg PO Q4H MDD 6 tabs PRN (Reason: pain) Qty: 30 RF: 0 sennosides [Senokot] 8.6 mg Tablet 17.2 mg PO HS PRN (Reason: constipation) Qty: 30 RF: 0 cefadroxil 500 mg capsule 500 mg PO BID Qty: 28 RF: 1 Continued losartan 50 mg Tablet 50 mg PO HS RF: 0 citalopram [Celexa] 10 mg Tablet 5 mg PO HS RF: 0 amlodipine 5 mg Tablet 5 mg PO HS RF: 0 pravastatin 10 mg Tablet 10 mg PO QAM RF: 0 buspirone 10 mg Tablet 10 mg PO QAM RF: 0 Discontinued meloxicam [Mobic] 15 mg Tablet 15 mg PO QAM RF: 0 aspirin 81 mg Tablet,Delayed Release (Dr/Ec) 81 mg PO HS RF: 0 Discharge Orders: Discharge Order (Routine); Ordered 08/26/19 Ordered By: Dante Rush/Other Patient Handouts: Surgery Prevent DVT After, Diabetes Wealth Management Consultant Complications, Diabetes Resources, Diabetes Healthy Meals, Diabetes Carbs, Diabetes Exercise Benefits, Diabetes Living Life, A1C Admission Data Admit Date/Time: 08/25/19 10:48 Attending Provider: Cruz Dai Admit Provider: Cruz Dai Primary Care Provider: Esha Solorzano Other Interventions: Discharge Summary Assessment (RN) Last Done: 08/26/19 14:12 DC Date/Time DO NOT enter until pt leaves facility: 08/26/19 15:10
== END 2019-08-26 15:10 | disposition home health service (06) | DRG 470 ==
LOC: ASU 06:17 → 3E 10:48